=== PATIENT | female | born 1950 | race Hispanic/Latino ===

== ENCOUNTER 2017-03-04 07:07 | Day surgery (SDC) | payer MEDICARE ==
[2017-03-04] MEDS ORDERED: NACL BACTERIOSTATIC INFILTRATI ONE (07:52)
[2017-03-04] MEDS ORDERED: ANCEF/STERILE WATER 2 GM/20 ML 2 GM/20 ML SYRINGE IV NR (08:00)
--- NOTE | 2017-03-04 08:30 | Anesthesia Day of Surgery ---
Anesthesia Day of Surgery - Day of Surgery Patient Examined: Yes Patient H&P Reviewed: Yes Patient is NPO: Yes
--- NOTE | 2017-03-04 08:30 | Anesthesia Consultation ---
Anesthesia Consult and Med Hx Date of service: 03/04/17 - Airway Anesthetic Teeth Evaluation: Good ROM Head & Neck: Adequate Mental/Hyoid Distance: Inadequate Mallampati Class: Class II Intubation Access Assessment: Probably Good - Pulmonary Exam CTA: Yes - Cardiac Exam Cardiac Exam: RRR - Pre-Operative Health Status ASA Pre-Surgery Classification: ASA3 Proposed Anesthetic Plan: General - Pre-Anesthesia Comment Pre-Anesthesia Comments: mild mandibular hypoplasia - Pulmonary Hx Smoking: No Hx Asthma: Yes (DAILY INHALERS) Hx Sleep Apnea: Yes (DX SLEEP APNEA-USED CPAP X 5 YRS , THEN LOST WT) - Cardiovascular System Hx Hypertension: No - Other Systems Hx Cancer: No
[2017-03-04] MEDS ORDERED: NACL 0.9% 1000 ML 1,000 ML ONE (08:36)
[2017-03-04] MEDS ORDERED: PEPCID IV NR (09:00)
[2017-03-04] MEDS ORDERED: NORCO 5/325 PO PRN (09:00)
[2017-03-04] MEDS ORDERED: VERSED IV NR (09:00)
[2017-03-04] MEDS ORDERED: DILAUDID IV PRN (09:00)
[2017-03-04] MEDS ORDERED: ZOFRAN IV PRN (09:00)
[2017-03-04] MEDS ORDERED: NACL 0.9% 1000 ML 1,000 ML IV SCH (09:00)
[2017-03-04] MEDS ORDERED: DIPRIVAN 10 MG/ML IV ONE (09:29)
[2017-03-04] MEDS ORDERED: DECADRON ONE (09:29)
[2017-03-04] MEDS ORDERED: ZOFRAN ONE (09:29)
[2017-03-04] MEDS ORDERED: SUBLIMAZE ONE (09:29)
[2017-03-04] MEDS ORDERED: XYLOCAINE MPF 2% ONE (09:29)
[2017-03-04] MEDS ORDERED: OMNIPAQUE 300 MG/50 ML (CATH LAB) IV ONE (10:03)
[2017-03-04] MEDS ORDERED: WATER FOR IRRIG STERILE IR ONE ×2 (10:03)
[2017-03-04] MEDS ORDERED: ePHEDrine SULFATE ONE (10:08)
--- NOTE | 2017-03-04 10:31 | Post Operative Note ---
Date of procedure: 03/04/17 Pre-op diagnosis: +fish Post-op diagnosis: same Findings: normal Procedure: cysto rpgs bx Anesthesia: GETA Surgeon: LEANNE LUJAN Estimated blood loss: none Pathology: list (bladder) Specimen disposition: to lab Condition: stable Disposition: PACU
--- NOTE | 2017-03-04 10:32 | Discharge Summary ---
Short Stay Discharge Plan Activity: other (no strsining ) Weight Bearing Status: Full Weight Bearing Diet: regular Special Instructions: other (inc fluids ) Follow up with: SHAHAB SANFORD NP [Primary Care Provider] - 7 Days LEANNE LUJAN MD [Staff Physician] - 7 Days
--- NOTE | 2017-03-04 10:50 | Post Anesthesia Evaluation ---
- Post Anesthesia Evaluation Patient Participated: Yes Airway Patent: Yes Stable Respiratory Function: Yes Temp > 96.8F: Yes Pain Manageable: Yes Adequeate Hydration: Yes Anesthesia Complications: No Block Receding Appropriately: Not Applicable
--- NOTE | 2017-03-04 12:19 | Operative Report ---
PREOPERATIVE DIAGNOSES: Microscopic hematuria, positive cytology. POSTOPERATIVE DIAGNOSES: Microscopic hematuria, positive cytology with no evidence of bladder cancer or urothelial cancer. PROCEDURE: Cystoscopy, retrograde bladder biopsies. SURGEON: Russell Hughes MD ANESTHESIA: General. FINDINGS: This is a woman with one positive cytology. She now presents for biopsies. Her only workup so far is negative. DESCRIPTION OF PROCEDURE: The patient brought to the operating room and placed on the operating table. Following induction of anesthesia, she has a small ____. No palpable masses on bimanual exam. Cystoscopy showed no bladder lesions. Retrograde showed good filling, good drainage. Multiple biopsies were obtained. The area was cauterized. The patient tolerated the procedure well and brought to recovery in stable condition. JOB# [id number] KORINA/ADALBERTO
[2017-03-04 12:34] VITALS: BP 121/75
--- NOTE | 2017-03-04 15:33 | Fluoroscopy Report ---
Retrograde pyelogram: Hematuria. Bilateral contrast was injected into the distal ureters. The opacification of both ureters and intrarenal collecting systems was accomplished. No suspicious filling defects or contour deformity is noted. Impression: No pathology identified.
--- NOTE | 2017-03-05 07:09 | Admit Criteria Form ---
Admission Criteria Documentation: AMBULATORY SURGERY EXCEPTION CRITERIA Ambulatory Surgery Exception Criteria ( Place 'X' for any and all applicable criteria): Surgery or procedure performed on ambulatory basis may require inpatient stay for[A] ANY ONE of the following(1)(2)(3)(4)(5)(6)(7)(8)(9): [X] I. A preoperative situation, condition, or finding that warrants inpatient stay as indicated by ANY ONE of the following: [] a) Inpatient care needed because of severity of a disease or condition rather than the surgery (eg, severe cardiac or respiratory disease, severe infection) (15) (16 ) (17) (18) [] b) Emergent procedure (eg, angioplasty for acute ischemia)(19) [] c) Complex surgical approach or situation as indicated by ANY ONE of the following(3): [] i) Open approach needed instead of usual endoscopic, transcatheter, or other less invasive procedure [] ii) Difficult approach because of previous operation [] iii) Airway monitoring required after open neck procedures(20)(21) [] iv) Large mass requiring unusually extensive dissection [] v) Additional complicating feature requiring inpatient care (eg, drain management)(22(23): [X] d) Major surgery in a pt with high anesthetic risk as indicated by ANY ONE of the following (2)(3)(5)(7)(8): [X] i) ASA risk class III or higher (severe systemic disease impairing function) [D] [] ii) Advanced age (eg, older than 85 years)(14)(24) [] iii) Symptomatic heart failure(25) [] iv) Symptomatic asthma or COPD(8)(21) [] v) Morbid obesity with hemodynamic or respiratory problems(20)( 21)(26)(27) [] vi) Obstructive sleep apnea(20)(21) [] vii) Former premature infants who are younger than 60 weeks [] viii) High risk for severe postoperative abnormalities (eg, severe postoperative hypocalcemia after parathyroidectomy for severe hyperparathyroidism)(27)( 28) [] ix) Unstable angina(25) [] e) Drug-related risk requiring inpatient stay as indicated by ANY ONE of the following(5)(10)(14)(32)(33) [] i) Procedure requires discontinuing drugs or other therapy (eg , antiarrhythmic medication, antiseizure medication), which necessitates inpatient observation or treatment.(18)(31) [] ii) Major surgery and high risk drug use as indicated by ANY ONE of the following: [] 1) Active abuse of cocaine or similar drug [] 2) Monoamine oxidase inhibitor use [] 3) Other drug identified as posing risk [] f) Inadequate outpatient care situation as indicated by ANY ONE of the following(5)(10)(14)(32)(33) [] i) Patient lives remote from medical facility and procedure has urgent complication potential, and temporary nearby residence cannot be arranged [] ii) Patient will have postprocedure incapacitation and inadequate assistance at home, or alternative level of care cannot be arranged. [] iii) Patient will have long general anesthesia or procedure side effect resolution time, and competent person to stay with patient on first postoperative night at home or alternative level of care cannot be arranged. []iv) Other inadequate outpatient situation that cannot be handled by other means [] II. A perioperative event, condition, or finding that warrants inpatient stay as indicated by ANY ONE of the following (1)(2)(3): [] a) Inadequate physiologic recovery: cardiovascular, respiratory, or hemodynamic status not normal or near preoperative baseline(18) [] b) Hemodynamic instability [] c) Patient not alert with near normal or baseline mental status [] d) Temperature not normal or as expected and not appropriate for outpatient treatment of condition [] e) Ambulatory or appropriate activity level status not yet achieved post procedure [E](34)(35)(36) [] f) Operative site not appropriate (eg, unexpected or excessive drainage or bleeding) [] g) Postoperative effects not resolved or adequately managed (eg, significant pain or vomiting not appropriate for outpatient or next level of care)(10)(12) [] h) Complicating features requiring inpatient care as indicated by ANY ONE of the following(37): [] i) Severe complications of procedure (eg, bowel injury, airway compromise, vascular injury,severe hemorrhage) [] ii) Extensive (eg, dissection far beyond usual scope of procedure ) or prolonged (eg, 120 minutes beyond usual) surgery needed requiring inpatient postoperative care [] iii) Conversion to an open or complex procedure that requires inpatient care (eg, open vs laparoscopic cholecystectomy, abdominal vs vaginal hysterectomy)(38) [] iv) Comorbid condition or test result identified during or post procedure that requires inpatient care (7) [] v) Malignant hyperthermia(30) [] vi) Other complicating feature requiring inpatient care(22)(23) Inpatient stay may be needed until ALL of the following are present (1)(2)(3)(4) (5)(6)(10)(14)(33)(40): []a) Physiologic recovery: cardiovascular, respiratory, and hemodynamic status normal or near preoperative baseline []b) Hemodynamic stability []c) Patient alert, with near normal or baseline mental status []d) Temperature appropriate: patient afebrile or temperature appropriate for outpt treatment of condition []e) Activity level appropriate: ambulatory or appropriate activity level post procedure []f) Operative site appropriate as indicated by ALL of the following: []i) Site dry or with expected drainage []ii) Any blood noted is as expected for procedure. []g) Postoperative effects resolved or managed as indicated by ALL of the following: []i) Pain management appropriate for outpatient (or next level of) care(10) []ii) Minimal nausea and vomiting: if present, successfully treated with oral medication(12) []iii) Headache, dizziness, or drowsiness (if present) are mild. []h) Voiding status acceptable as indicated by ANY ONE of the following: []i) Voiding spontaneously []ii) No voiding but instructions given for follow-up in 6 to 8 hours []iii) Urinary catheter in place, and instructions given for follow-up []i) Complicating features requiring inpatient care manageable at a lower level of care(37) []j) Comorbid conditions manageable at a lower level of care(37) The original [employer] content created by [employer] has been revised. The portions of the content which have been revised are identified through the use of italic text or in bold, and [facility] [employer] has neither reviewed nor approved the modified material. All other unmodified content is copyright [employer]. Please see references footnoted in the original [employer] edition 2016 Admission Criteria Met: Yes
== END 2017-03-04 12:35 | disposition home or self-care (01) ==
LOC: OR 07:07
PROVIDERS: ATTEND Urology
DX: R31.29 Other microscopic hematuria (principal); J45.909 Unspecified asthma, uncomplicated; G47.30 Sleep apnea, unspecified; Z79.899 Other long term (current) drug therapy; Z79.82 Long term (current) use of aspirin
CPT/HCPCS: 36415; 52204; 74420; 84132; 88112; 88305; A4217; C1758; J0690; J1100; J2250; J2405; J2704; J3010; J7030; Q9967